=== PATIENT | male | born 1945 | race Caucasian/White ===

== ENCOUNTER → 2020-09-22 | Outpatient (CLI) | payer MEDICARE, OTHER ==
[~2020-09-22] MED LIST: SUBOXONE 8 MG-1 EACH SL
[2020-09-22 10:52] LABS: HEMOGLOBIN 16.1 gm/dl (14.0-17.5); RED BLOOD COUNT 5.04 M/UL (4.20-5.50); WHITE BLOOD COUNT 9.6 K/UL (4.5-11.0)
[2020-09-22 11:16] LABS: BUN/CREATININE RATIO 11 (0-10)
[2020-09-24 14:14] LABS: CHOLESTEROL, TOTAL 156 mg/dL (100-199); HDL SIZE 9.4 nm (>=9.2); HDL-C 49 mg/dL (>39); HDL-P (TOTAL) 27.7 umol/L (>=30.5); LARGE HDL-P 6.5 umol/L (>=4.8); LARGE VLDL-P 1.7 nmol/L (<=2.7); LDL SIZE 20.6 nm (>20.5); LDL SIZE 20.6 nm (>=20.8); LDL-C 93 mg/dL (0-99); LDL-P 1026 nmol/L (<1000); LP-IR SCORE 30 (<=45); SMALL LDL-P 286 nmol/L (<=527); TRIGLYCERIDES 74 mg/dL (0-149); VLDL SIZE 42.2 nm (<=46.6)
== END ==
LOC: LAB 10:17
PROVIDERS: Emergency Medicine
DX: Z00.01 Encounter for general adult medical examination with abnormal findings (principal); Z12.5 Encounter for screening for malignant neoplasm of prostate; E78.2 Mixed hyperlipidemia; G47.09 Other insomnia; H10.13 Acute atopic conjunctivitis, bilateral; I25.10 Atherosclerotic heart disease of native coronary artery without angina pectoris; J20.8 Acute bronchitis due to other specified organisms; K80.19 Calculus of gallbladder with other cholecystitis with obstruction; M15.8 Other polyosteoarthritis; M51.36 Other intervertebral disc degeneration, lumbar region; I12.9 Hypertensive chronic kidney disease with stage 1 through stage 4 chronic kidney disease, or unspecified chronic kidney disease; N18.2 Chronic kidney disease, stage 2 (mild); R73.09 Other abnormal glucose; R74.8 Abnormal levels of other serum enzymes
CPT/HCPCS: 36415; 80053; 84550; 85025; G0103

== ENCOUNTER 2021-03-09 14:40 | Inpatient (IN) | payer MEDICARE, OTHER ==
[~2021-03-09] VITALS: Ht 188 cm; Wt 74.8 kg
[2021-03-09 15:03] LABS: HEMOGLOBIN 15.8 gm/dl (14.0-17.5); RED BLOOD COUNT 4.95 M/UL (4.20-5.50); WHITE BLOOD COUNT 7.5 K/UL (4.5-11.0)
[2021-03-09 15:30] LABS: BUN/CREATININE RATIO 13 (0-10)
[2021-03-10] MEDS ORDERED: SUBOXONE 8 MG-1 EACH SL (00:34)
[2021-03-10] MEDS ORDERED: AMLODIPINE BESY10 MG PO (08:10)
[2021-03-10] MEDS ORDERED: COREG 12.5MG12.5 MG PO (08:11)
[2021-03-10] MEDS ORDERED: SIMVASTATIN10 MG PO (08:12)
[2021-03-10] MEDS ORDERED: ASPIRIN EC81 MG PO (10:54)
[2021-03-10] MEDS ORDERED: DICLOFENAC SOD100 GM TP (10:56)
[2021-03-11 05:51] LABS: HEMOGLOBIN 14.4 gm/dl (14.0-17.5); RED BLOOD COUNT 4.55 M/UL (4.20-5.50)
[2021-03-11 05:58] LABS: WHITE BLOOD COUNT 13.1 K/UL (4.5-11.0)
[2021-03-11 06:15] LABS: BUN/CREATININE RATIO 25 (0-10)
--- NOTE | 2021-03-12 10:54 | NUR ---
AT 0900, PA WAS MADE AWARE OF THE PT HR STAYING ELEVATED >120 BPM.
[2021-03-12] MEDS ORDERED: ELIQUIS2.5 MG PO (11:08)
--- NOTE | 2021-03-13 11:49 | NUR ---
PT STILL DESAT. ON HIFLOW NC. RT PLACED PT ON AIRVO.
[2021-03-14 03:12] LABS: RED BLOOD COUNT 4.49 M/UL (4.20-5.50)
[2021-03-14 03:20] LABS: WHITE BLOOD COUNT 9.5 K/UL (4.5-11.0)
[2021-03-14 03:34] LABS: BUN/CREATININE RATIO 26 (0-10)
[2021-03-16 14:15] LABS: BUN/CREATININE RATIO 31 (0-10)
[2021-03-17 03:18] LABS: HEMOGLOBIN 13.3 gm/dl (14.0-17.5); RED BLOOD COUNT 4.27 M/UL (4.20-5.50); WHITE BLOOD COUNT 13.9 K/UL (4.5-11.0)
[2021-03-17 03:55] LABS: BUN/CREATININE RATIO 38 (0-10)
--- NOTE | 2021-03-17 12:41 | NUR ---
FAMILY AGREED ON DECISION TO MAKE PT COMFORT MEASURES, DR LEI MADE AWARE, AWAITING NEW ORDERS.
[2021-03-18 03:07] LABS: HEMOGLOBIN 13.2 gm/dl (14.0-17.5); RED BLOOD COUNT 4.2 M/UL (4.20-5.50)
[2021-03-18 03:14] LABS: WHITE BLOOD COUNT 19.5 K/UL (4.5-11.0)
[2021-03-18 03:36] LABS: BUN/CREATININE RATIO 38 (0-10)
[2021-03-20 03:02] LABS: HEMOGLOBIN 13.3 gm/dl (14.0-17.5); RED BLOOD COUNT 4.28 M/UL (4.20-5.50)
[2021-03-20 03:29] LABS: BUN/CREATININE RATIO 32 (0-10)
[2021-03-21 04:52] LABS: HEMOGLOBIN 12.1 gm/dl (14.0-17.5); RED BLOOD COUNT 3.95 M/UL (4.20-5.50); WHITE BLOOD COUNT 24.8 K/UL (4.5-11.0)
[2021-03-21 05:39] LABS: BUN/CREATININE RATIO 38 (0-10)
[2021-03-21 14:41] LABS: HEMOGLOBIN 12.1 gm/dl (14.0-17.5)
[2021-03-22 03:22] LABS: HEMOGLOBIN 11.4 gm/dl (14.0-17.5); RED BLOOD COUNT 3.7 M/UL (4.20-5.50); WHITE BLOOD COUNT 26.6 K/UL (4.5-11.0)
[2021-03-22 03:51] LABS: BUN/CREATININE RATIO 47 (0-10)
[2021-03-23 03:29] LABS: HEMOGLOBIN 11.1 gm/dl (14.0-17.5); RED BLOOD COUNT 3.66 M/UL (4.20-5.50)
[2021-03-23 03:30] LABS: WHITE BLOOD COUNT 34.1 K/UL (4.5-11.0)
[2021-03-23 04:02] LABS: BUN/CREATININE RATIO 41 (0-10)
[2021-03-24 01:11] LABS: BUN/CREATININE RATIO 49 (0-10)
[2021-03-24 01:15] LABS: HEMOGLOBIN 9.4 gm/dl (14.0-17.5)
[2021-03-24 01:19] LABS: WHITE BLOOD COUNT 32.3 K/UL (4.5-11.0)
[2021-03-24 04:02] LABS: HEMOGLOBIN 8.2 gm/dl (14.0-17.5)
[2021-03-24 04:06] LABS: RED BLOOD COUNT 2.62 M/UL (4.20-5.50)
[2021-03-24 04:27] LABS: BUN/CREATININE RATIO 51 (0-10)
--- NOTE | 2021-03-24 06:15 | NUR ---
AT APPROXIMATELY 2230, 03/23, PATIENT BEGAN COMPLAINING OF SHORTNESS OF BREATH. AT THAT TIME, PT WAS ON 8L HI ELENI AND 96%. PATIENT CONTINUED TO COMPLAIN OF SHORTNESS OF BREATH AND THEN BEGAN TO PANIC. RESPIRATORY CALLED, LIBERTY RT, CAME TO ASSIST. NOTIFIED DR LECHUGA, ORDERS RECEIVED FOR LABS AND IMAGING. PATIENT STARTED ON LEVO FOR SBP 70'S AND PLACED ON BIPAP. SATS BEGAN TO INCREASE. TRANSPORTED PATIENT DOWN TO CT, TEST DONE, RESULTS CALLED TO DR LECHUGA, ORDERS RECEIVED AND IMPLEMENTED. PT CURRENTLY RESTING COMFORTABLY ON BIPAP, SATS 95-100%.
--- NOTE | 2021-03-24 14:06 | NUR ---
UNABLE TO KEEP PATIENTS BLOOD PRESSURE WNL. PT NOW ON 30MCG OF LEVOPHED AND RECEIVED 1 LITER NS BOLUS. BP103/48 (63). PT TRANSFERRED TO ICU.
== END 2021-03-24 20:15 | disposition expired | DRG 871 ==
LOC: ER1 14:40 → CDU 17:23 → PROG CARE 17:23 → MED SURG 4 03-10 16:31 → PROG CARE 03-13 13:23 → CCU 03-24 14:01
PROVIDERS: Family Medicine; Internal Medicine; ADMIT Internal Medicine
PROC: 5A09557 Assistance with Respiratory Ventilation, Greater than 96 Consecutive Hours, Continuous Positive Airway Pressure (ICD-10-PCS; principal; 2021-03-09)
PROC: 8E0ZXY6 Isolation (ICD-10-PCS; 2021-03-09)
PROC: XW033E5 Introduction of Remdesivir Anti-infective into Peripheral Vein, Percutaneous Approach, New Technology Group 5 (ICD-10-PCS; 2021-03-09)
PROC: 3E0333Z Introduction of Anti-inflammatory into Peripheral Vein, Percutaneous Approach (ICD-10-PCS; 2021-03-09)
PROC: 3E033XZ Introduction of Vasopressor into Peripheral Vein, Percutaneous Approach (ICD-10-PCS; 2021-03-09)
PROC: 5A0945A Assistance with Respiratory Ventilation, 24-96 Consecutive Hours, High Flow/Velocity Cannula (ICD-10-PCS; 2021-03-21)
DX: A41.89 Other specified sepsis (principal); J12.82 Pneumonia due to coronavirus disease 2019; J15.9 Unspecified bacterial pneumonia; R65.21 Severe sepsis with septic shock; J80 Acute respiratory distress syndrome; U07.1 COVID-19; G92 Toxic encephalopathy; J44.0 Chronic obstructive pulmonary disease with (acute) lower respiratory infection; F11.20 Opioid dependence, uncomplicated; E87.2 Acidosis; I46.8 Cardiac arrest due to other underlying condition; E78.5 Hyperlipidemia, unspecified; I10 Essential (primary) hypertension; I12.9 Hypertensive chronic kidney disease with stage 1 through stage 4 chronic kidney disease, or unspecified chronic kidney disease; N18.30 Chronic kidney disease, stage 3 unspecified; I25.10 Atherosclerotic heart disease of native coronary artery without angina pectoris; D69.6 Thrombocytopenia, unspecified; I48.0 Paroxysmal atrial fibrillation; Z95.1 Presence of aortocoronary bypass graft; Z79.899 Other long term (current) drug therapy; Z87.891 Personal history of nicotine dependence; Z90.49 Acquired absence of other specified parts of digestive tract; Z82.49 Family history of ischemic heart disease and other diseases of the circulatory system; Z83.1 Family history of other infectious and parasitic diseases; Z79.82 Long term (current) use of aspirin; Z79.01 Long term (current) use of anticoagulants
CPT/HCPCS: ECHO; 31500; 36415; 36600; 71045; 71275; 80048; 80053; 81001; 82272; 82550; 82553; 82803; 83605; 83735; 83874; 83880; 84132; 84439; 84443; 84484; 85014; 85018; 85025; 85027; 87040; 92950; 93005; 93306; 94640; 94660; 94760; 96374; 96375; 97162; 97166; 97530; 97530-GP-CQ; 99285; J0171; J0456; J0696; J1100; J1160; J1650; J1940; J2270; J2370; J2543; J3370; J3486; J7030; J7040; J7070; Q0177; Q9967; U0002